=== PATIENT | male | born 1970 | race Caucasian/White ===

== ENCOUNTER 2023-03-03 05:56 | Day surgery (SDC) | payer BC, OTHER ==
[2023-03-03 06:23] VITALS: RESP 18
[2023-03-03] MEDS ORDERED: Lactated Ringers 1,000 ML IV SCH (06:30)
[2023-03-03] MEDS ORDERED: DIPRIVAN 200 MG/20 ML IV ONE ×2 (07:30→07:44)
[2023-03-03] MEDS ORDERED: Versed 2 MG/2 ML Injection ONE (07:30)
[2023-03-03 08:30] VITALS: O2SAT 95
[2023-03-03 08:39] VITALS: PULSE 67
[2023-03-03 09:03] VITALS: BP 137/73; TEMP 98
--- NOTE | 2023-03-03 11:24 | OP ---
SURGERY DATE/TIME: 03/03/2023 0742 PREOPERATIVE DIAGNOSIS: Screening colonoscopy. POSTOPERATIVE DIAGNOSIS: Cecal polyp x1. PROCEDURE: Colonoscopy. SURGEON: Damion Tate M.D. ANESTHESIA: MAC by Jeremías Aragon CRNA. ESTIMATED BLOOD LOSS: Minimal. SPECIMENS: One hot forceps polypectomy from the cecum. DESCRIPTION OF PROCEDURE: After informed written consent was obtained, the patient was taken to the endoscopy suite. He was placed in left lateral decubitus position and anesthesia was titrated to desired level of consciousness. Digital rectal exam showed normal sphincter tone and no internal lesions. The scope was inserted into the rectum and sequentially the entire colonic mucosa was traversed. The level of cecum was reached and verified with direct visualization of the ileocecal valve. In the cecal region, there was a small sessile polyp which was grasped with forceps, cauterized and removed in its entirety. There was no bleeding following removal. The lesion was sent to pathology. The remainder of the exam was unremarkable. Prep was noted to be good. Prior to withdrawal retroflexion was performed and showed no internal lesions. The scope was removed and the patient was transferred to the recovery room in good condition. He will follow up in a week for pathology results.
== END 2023-03-03 09:05 | disposition home or self-care (01) ==
LOC: SDC 05:56
PROVIDERS: ATTEND Family Medicine
DX: Z12.11 Encounter for screening for malignant neoplasm of colon (principal); D12.0 Benign neoplasm of cecum
CPT/HCPCS: J2250; J2704